=== PATIENT | male | born 2005 | race Caucasian/White ===

== ENCOUNTER 2024-02-28 15:49 | Emergency (ER) | payer OTHER, SELFPAY ==
[2024-02-28 15:51] VITALS: BP 124/63
[2024-02-28 16:27] VITALS: BMI 26.8
[2024-02-28 16:34] VITALS: BP 117/62
--- NOTE | 2024-02-28 16:55 | ED.GENMED ---
History of Present Illness
General
Chief Complaint: Chest Pain
Source: patient
Exam Limitations: none
Time Seen by Provider: 02/28/24 16:40
Travel History
Have you had any contact with someone who has COVID-19?: No
Do you have any symptoms of coronavirus? Fever > 100 degrees, chills, cough, shortness of breath, sore throat, loss of taste or smell, muscle aches, or headache?: No
History of Present Illness
History of Present Illness:
19-year-old male presents complaining of intermittent chest pain over the past 4 to 5 days with associated intermittent left forearm pain. He feels as though he has to take deep breaths more frequently. The pain is not pleuritic. He is a college
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 No family history of early coronary artery disease. There is no predictability with the discomfort. It can be random and happen at rest. No known injury.
No cough or fever. Prior to the onset of this discomfort several weeks ago he was developing lightheadedness which seem to be made worse after eating. He felt as though he was dehydrated or had an electrolyte abnormality. He started magnesium at
night as well as drinking electrolytes. Since then his lightheadedness has resolved.
Phy Exam
Physical Exam
Physical Exam:
General: Well-appearing male no acute respiratory distress
HEENT: Normocephalic atraumatic
Heart: Regular rate and rhythm no murmurs
Lungs: Clear no wheeze or Rales
Extremities: No cyanosis or edema
Skin warm no rash
Scores
Heart Score for Chest Pain Patients
STEMI patient?: No
History: Slightly or Non-Suspicious
ECG: Normal
Age: </= 45 years
Risk Factors: No Risk Factors
Troponin: </= Normal Limit
Heart Score for Chest Pain Patients: 0
Heart Score Risk: 2.5% MACE over next 6 weeks
Course
Orders/Labs/Results
Orders:
Orders
02/28/24 15:53
EKG [Electrocardiogram (*1)] Stat
Reason for Study: Chest Pain
EKG- Treatment ONCE
02/28/24 17:06
Complete Blood Count/With Diff Urgent
Comprehensive Metabolic Panel Urgent
D-Dimer Urgent
TSH Urgent
Troponin I Urgent
02/28/24 17:39
CXR2 [CR Chest - 2 Views ] Urgent
Comment:
Reason For Exam: cp, short of breath
Abnormal Lab Results
02/28/24
17:06
MCH 31.3 H pg
(27.0-31.0)
Monocytes % 10.5 H %
(1.7-9.3)
Glucose 102 H mg/dl
(70-99)
02/28/24 17:06
02/28/24 17:06
Vital Signs
Initial and Last Documented VS:
Initial Vital Signs
Temp Pulse Resp BP Pulse Ox
97.9 F 56 18 124/63 100
02/28/24 15:51 02/28/24 15:51 02/28/24 15:51 02/28/24 15:51 02/28/24 15:51
Last Documented Vital Signs
Temp Pulse Resp BP Pulse Ox
97.9 F 59 15 123/75 98
02/28/24 15:51 02/28/24 17:30 02/28/24 17:30 02/28/24 17:30 02/28/24 17:30
MDM/Problems Addressed
Differential Diagnosis Includes:
Chest pain with left arm pain. Consider ACS versus PE versus musculoskeletal discomfort versus arrhythmia.
Chemistry pending will check D-dimer and troponin.
*Critical Care Note
Total Time (30-74mins, 75-104mins- exclusive of procedures): Not Applicable
Update Note
Update Note:
Workup here unremarkable including undetectable troponin and D-dimer. Chemistry profile within normal limits EKG shows sinus bradycardia which is expected in a young healthy athlete. Chest x-ray clear. No arrhythmias noted on monitor. Do not
suspect ACS or PE. Recommended staying hydrated. No indication for any further intervention from the emergency room. Stable for discharge. They plan on following up with a manager of customer billing
ED Attending Note
-
Portions of this chart may have been created with voice recognition software.� Occasional wrong word or��sound alike� substitutions may have occurred due to the inherent limitations of voice recognition software.
Discharge Plan
Departure
Patient Disposition: Home (Routine Discharge)
Date of Disposition: 02/28/24
Time of Disposition: 18:21
Patient with high blood pressure during this ER visit?: No
Discharge Problem:
Chest pain
Instructions: Chest Pain NON-[facility] Medical Unit Secretary Follow Up
Referrals:
Zeus Barragan MD [Family Provider] -
Activity Restrictions/Additional Instructions:
Please return here for any worsening symptoms. Continue to follow-up with manager of customer billing as planned.
Interventions
Interventions:
*Risk Screen - Suicide Last Done: 02/28/24 16:27
*General Assessment Last Done: 02/28/24 16:27
*Neglect/Abuse Screening Last Done: 02/28/24 16:27
*ED COVID-19 Vaccine History Last Done: 02/28/24 15:51
ED- Cardiac Assessment Last Done: 02/28/24 16:29
Discharge Date and Time
Print Language: CAMBODIAN
[2024-02-28 17:00] VITALS: BP 112/71
[2024-02-28 17:12] LABS: % Basophils 0.2 % (0-2); % Eosinophils 2.4 % (0-6); % Immature Granulocytes 0.2 % (0-0.5); % Monocytes 10.5 % (1.7-9.3); % Neutrophils 53.7 % (42.2-75.2); Absolute Eosinophils 0.1 10^3/uL (0-0.7); Absolute Lymphocytes 1.9 10^3/uL (1.2-3.4); Absolute Monocytes 0.6 10^3/uL (0.1-0.6); Absolute Neutrophils 3.1 10^3/uL (1.4-6.5); Hemoglobin 15.2 g/dL (13.0-18.0); Mean Corp Hgb Conc. 36.2 g/dL (33.0-37.0); Mean Corpuscular Hgb 31.3 pg (27.0-31.0); Mean Corpuscular Volume 86.4 fL (80.0-94.0); Mean Platelet Volume 8.4 fL (7.4-10.4); Nucleated Red Blood Cells % 0 % (-); Platelet Count 205 10^3/uL (130-400); Red Blood Cell Count 4.86 10^6/uL (4.70-6.10); Red Cell Dist. Width 11.6 % (11.5-14.5); White Blood Cell Count 5.8 10^3/uL (4.8-10.8)
[2024-02-28 17:30] VITALS: BP 123/75
[2024-02-28 17:33] LABS: D-Dimer < 0.27 ug/mlFEU (0.00-0.50)
[2024-02-28 17:40] LABS: Troponin I < 0.012 ng/ml
[2024-02-28 17:49] LABS: ALT (SGPT) 34 U/L (0-50); AST (SGOT) 38 U/L (17-59); Albumin 4.8 g/dl (3.5-5.0); Alkaline Phosphatase 76 U/L (38-126); Blood Urea Nitrogen 18 mg/dl (9-20); Calcium 9.8 mg/dl (8.4-10.2); Carbon Dioxide 29 mmol/L (22-30); Chloride 102 mmol/L (98-107); Estimated Creatinine Clearance > 125 ml/min; Glucose 102 mg/dl (70-99); Potassium 4.3 mmol/L (3.5-5.1); Sodium 140 mmol/L (135-145); Total Bilirubin 0.6 mg/dl (0.2-1.3); Total Protein 7.5 g/dl (6.3-8.2); eGFR > 60.00
[2024-02-28 17:59] LABS: TSH 0.53 uIU/ml (0.47-4.68)
[2024-02-28 18:00] VITALS: BP 120/56
== END 2024-02-28 18:29 | disposition home or self-care (01) ==
LOC: EMR 15:49
PROVIDERS: Physician Assistant; EMERGENCY PHYSICIAN Emergency Medicine; FAMILY PHYSICIAN Family Medicine
DX: R07.89 Other chest pain (principal); M79.632 Pain in left forearm; R06.02 Shortness of breath; R42 Dizziness and giddiness; Z88.1 Allergy status to other antibiotic agents
CPT/HCPCS: 99283; 71046; 80053; 84443; 84484; 85025; 85379; 93005